=== PATIENT | female | born 1980 | race Caucasian/White ===

== ENCOUNTER → 2019-05-14 | Outpatient (CLI) | payer OTHER | LOC: COL.RAD 04-30 09:45 | DX: G93.5 Compression of brain (principal); H53.461 Homonymous bilateral field defects, right side; H53.47 Heteronymous bilateral field defects | CPT/HCPCS: A9585 ==

== ENCOUNTER → 2019-06-23 | Outpatient (CLI) | payer OTHER | LOC: COL.RAD 11:40 | DX: G93.5 Compression of brain (principal); M50.30 Other cervical disc degeneration, unspecified cervical region; H53.9 Unspecified visual disturbance ==